=== PATIENT | male | born 1950 | race Caucasian/White ===

== ENCOUNTER 2022-02-12 08:59 | Emergency (ER) | payer MEDICARE, OTHER, SELFPAY ==
[2022-02-12] VITALS (7 sets, daily range): BP systolic 132–165; BP diastolic 68–79; PULSE 61–89; RESP 18–20; TEMP 36.7; O2SAT 94–99; BMI 24.3
--- NOTE | 2022-02-12 09:22 | EDS_ITS ---
HPI History of Present Illness Chief Complaint: Shortness of Breath Informant: patient Narrative Narrative: Patient presents with dyspnea and some mild lightheadedness. 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 He took off the helmet and then turned quickly. When he did this he got mildly dizzy or lightheaded but not vertiginous. He also feels some mild dyspnea. He does not have any chest pain pressure or soreness or tightness. He has no nausea vomiting. No diaphoresis. He does not feel ill. He has not had this occur before. He did have feeling a little bit like his hand was tingling but that is better. Patient does have a history of heart disease. He had two-vessel bypass in 2007. I was able to bring up on my chart that he had normal nuclear stress test back in 2017. He was just started on losartan recently for blood pressure. [facility] Medical History Eczema Myocardial infarct Home Medications albuterol 90 mcg/actuation aerosol inhaler 180 mcg inhalation Q4H PRN PRN Shortness Of Breath Or Wheezing 02/12/22 [History Last Taken Unknown] aspirin 81 mg tablet,delayed release 81 mg PO DAILY 02/12/22 [History Last Taken 02/12/22] atorvastatin 80 mg tablet 80 mg PO DAILY 02/12/22 [History Last Taken Unknown] bupropion HCl 150 mg tablet,12 hr sustained-release 150 mg PO BID 02/12/22 [History Last Taken Unknown] dupilumab 200 mg/1.14 mL subcutaneous pen injector (Dupixent) 300 mg subcut 02/12/22 [History Last Taken 02/02/22] fluticasone propionate 50 mcg/actuation nasal spray,suspension 2 spray intranasal DAILY 02/12/22 [History Last Taken Unknown] losartan 25 mg tablet 25 mg PO DAILY 02/12/22 [History Last Taken Unknown] magnesium oxide 400 mg PO DAILY 02/12/22 [History Last Taken Unknown] nitroglycerin 0.4 mg sublingual tablet (Nitrostat) 0.4 mg sublingual Q5M PRN CHEST PAIN 02/12/22 [History Last Taken Unknown] omeprazole 40 mg capsule,delayed release 40 mg PO DAILY 02/12/22 [History Last Taken Unknown] tamsulosin 0.4 mg capsule 0.4 mg PO DAILY 02/12/22 [History Last Taken Unknown] Allergy/AdvReac Type Severity Reaction Status Date / Time No Known Allergies Allergy Verified 02/12/22 09:10 Surgical History Hx of CABG Social History Smoking Status: Former smoker ROS ROS ED Constitutional Constitutional ED: Denies chills or fever(s) Eyes Eyes: Denies change in vision or diplopia ENT ENT ED: Denies rhinorrhea Cardiovascular Cardiovascular: Denies chest pain, palpitations or racing heartbeat Respiratory/Chest Respiratory/Chest: Reports dyspnea; Denies cough, dyspnea on exertion or sputum Gastrointestinal Gastrointestinal: Denies abdominal pain, nausea or vomiting Musculoskeletal Musculoskeletal: Denies arthralgias, back pain, myalgias or neck pain Integumentary Denies rash Neurologic Neurologic: Denies headache(s) Endocrine Endocrinology: Denies polydipsia or polyuria Hematologic/Lymphatic Hematologic/Lymphatic: Denies easy bleeding or easy bruising Allergic/Immunologic Allergic/Immunologic ED: Denies urticaria EXAM Physical Exam Const Vital Signs: 02/12/22 09:01 02/12/22 09:10 02/12/22 09:49 Temperature 98.0 F Temperature Source Oral Pulse Rate 87 81 Respiratory Rate 19 H Respiratory Effort Normal Non-Labored Respiratory Depth Normal Respiratory Pattern Normal Blood Pressure 165/79 H 158/77 H Blood Pressure Mean 107 Pulse Ox 97 Oxygen Delivery Method Room Air Room Air 02/12/22 09:54 02/12/22 11:00 02/12/22 13:00 Temperature Temperature Source Pulse Rate 89 82 61 Respiratory Rate 19 H 19 H 20 H Respiratory Effort Respiratory Depth Respiratory Pattern Blood Pressure 133/71 H 151/68 H 132/68 H Blood Pressure Mean 91 95 89 Pulse Ox 94 97 Oxygen Delivery Method Room Air Room Air Positive well nourished and well developed General Appearance ED: well developed and NAD HEENT Reports moist mucous membranes Eyes General Eye ED: Negative for scleral icterus Neck no JVD Resp normal respiratory effort Auscultation: Negative for rales, rhonchi or wheezes Cardio regular rate and regular rhythm GI non-tender, non-distended and no masses Palpation: soft Back/Spine no CVA tenderness Extremity normal to inspection General Extremety ED: Negative for edema or tenderness General Extremity: Negative for edema Neuro Sensorium / Orientation: alert Psych mental status grossly normal Skin no wounds Skin Narrative: No pallor. No diaphoresis. MDM MDM MDM Narrative Medical decision making narrative: Patient does not have chest pain. But he is a high risk patient with known heart disease. He has onset of dyspnea some mild lightheadedness and some aching in his left wrist hand area. This is a little concerning for heart disease. He has no neurologic finding. He does have a new left bundle branch block with changes. My last EKG is from 2001. I was able to bring up an EKG from 2017 off of my chart. That was not a left bundle branch. I sent the email and discussed the case with Dr. Li. At this point we will work him up but not go to [facility] immediately. He does recommend admission due to the symptoms and EKG changes and his history. Talk to the hospitalist. He talked to the patient. Patient really does not want to stay around for the weekend. He found out they would not be able to do a heart catheterization this weekend. He would like to go home. He was convinced to stay to repeat a troponin. We had a little trouble because the machine then went down. But we able to get a repeat troponin. It is unchanged. Patient feels resolved and good at this time. He will follow-up. 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 He can also contact his primary physician, Dr. Conway, for an appointment. If he has any symptoms in the meantime or concerns he should return Lab Data Attestation: I reviewed the patient's lab results. Labs: Laboratory Results - last 24 hr 02/12/22 02/12/22 02/12/22 09:20 09:20 11:42 WBC 6.1 RBC 4.24 L Hgb 12.7 L Hct 37.6 L MCV 88.7 MCH 30.0 MCHC 33.8 RDW Std Deviation 39.4 RDW Coeff of Dread 12.3 Plt Count 123 L MPV 9.9 Immature Gran % (Auto) 0.300 Neut % (Auto) 68.7 Lymph % (Auto) 17.9 L [place] % (Auto) 8.0 Eos % (Auto) 4.4 Baso % (Auto) 0.7 Absolute Neuts (auto) 4.2 Absolute Lymphs (auto) 1.10 Nucleated RBC % 0 Sodium 141 Potassium 4.2 Chloride 106 Carbon Dioxide 28.0 Anion Gap 7 BUN 17 Creatinine 1.33 H Estim Creat Clear Calc 51.68 Est GFR (MDRD) Af Amer 68 Est GFR (MDRD) Non-Af 57 L BUN/Creatinine Ratio 12.8 Glucose 107 H Calcium 9.2 Magnesium 1.6 Troponin I High Sens 13 13 Radiography Diagnostic Testing: Clinical Impression(s) from Imaging Studies Chest X-Ray 02/12/22 09:39 IMPRESSION: Normal x-ray examination of the chest. Electronically Signed: Chip Maldonado MD at 10:50 EDT , Discharge Plan Triage Chief Complaint: Shortness of Breath ED Provider: Matias Crane Dx/Rx/DC Orders Clinical Impression: Dyspnea, Bundle branch block, left Instructions: ED Dyspnea Prescriptions: No Action bupropion HCl 150 mg Tablet Sustained-Release 12 Hr 150 mg PO BID atorvastatin 80 mg tablet 80 mg PO DAILY omeprazole 40 mg capsule,delayed release(DR/EC) 40 mg PO DAILY aspirin [Aspir-81] 81 mg Tablet,Delayed Release (Dr/Ec) 81 mg PO DAILY tamsulosin 0.4 mg capsule 0.4 mg PO DAILY losartan 25 mg tablet 25 mg PO DAILY Label Comments: TAKE 1 TABLET BY MOUTH DAILY nitroglycerin [Nitrostat] 0.4 mg Tablet, Sublingual 0.4 mg SUBLINGUAL Q5M PRN (Reason: CHEST PAIN) Rx Instructions: do not exceed 3 doses per episode albuterol 90 mcg/actuation Aerosol 180 mcg INHALATION Q4H PRN PRN (Reason: Shortness Of Breath Or Wheezing) fluticasone propionate [Flonase] 50 mcg/actuation [place],Suspension 2 spray INTRANASAL DAILY Rx Instructions: administer into each nostril magnesium oxide 400 mg magnesium Capsule 400 mg PO DAILY Dupixent Pen 200 mg/1.14 mL pen injector 300 mg SUBCUT Rx Instructions: EVERY 2 WEEKS Primary Care Provider: Lindy Conway Referrals: Ivan Li MD [Med Staff - Active Staff] - As soon as possible NOT,DEFINED [Non-Staff] - Disposition Disposition: Home, Self Care
--- NOTE | 2022-02-12 09:22 | EKG12_ITS ---
Test Reason : SOB Blood Pressure : / mmHG Vent. Rate : 084 BPM Atrial Rate : 084 BPM P-R Int : 178 ms QRS Dur : 140 ms QT Int : 394 ms P-R-T Axes : 083 108 037 degrees QTc Int : 465 ms Normal sinus rhythm Rightward axis Left ventricular hypertrophy with QRS widening and repolarization abnormality ( Andrzej product ) Cannot rule out Septal infarct , age undetermined Abnormal ECG Confirmed by MATTIE ZAMAN, MARY ([id number]), web content editor HANY PACKER ([id number]) on 02/14/2022 10:04:43 AM Referred By: ALONA Confirmed By:ELODIA PHELPS MD
--- NOTE | 2022-02-12 09:39 | RAD_ITS ---
STUDY: X-RAY CHEST REASON FOR EXAM: Male, 71 years old. Chest pain TECHNIQUE: AP portable view of the chest. COMPARISON: None. FINDINGS: There are monitoring devices. The lungs are clear and expanded. There is no demonstrated pleural abnormality. Sternal cerclage wires are present from a prior sternotomy. Normal mediastinum and renetta. Normal visualized pulmonary arteries. Normal visualized aortic arch and descending thoracic aorta. Normal visualized thoracic spine. Normal visualized ribs, clavicles, and shoulders. There is no demonstrated abnormality of the visualized soft tissue structures of the upper abdomen. RAD/Chest 1 View (Portable) IMPRESSION: Normal x-ray examination of the chest. Electronically Signed: Chip Maldonado MD at 10:50 EDT ,
[2022-02-12 09:43] LABS: Absolute Neutrophil Count 4.2 X10^3/uL (2.0-7.7); Basophil# 0.04 X10^3/uL; Basophil% 0.7 % (0-1); Eosinophil# 0.27 X10^3/uL; Eosinophils% 4.4 % (0-5); Hematocrit 37.6 % (40-54); Hemoglobin 12.7 g/dL (13.0-16.5); Lymphocyte % 17.9 % (19-41); Mean Corp Hgb Conc 33.8 g/dL (32-36); Mean Corpuscular Volume 88.7 fL (80-94); Mean Platelet Vol. 9.9 fl (6.2-12.0); Monocyte# 0.49 X10^3/uL; NRBC Flagged by Analyzer 0 % (0-5); Neutrophil # 4.21 X10^3/uL (2.7-7.7); Neutrophil % 68.7 % (47-70); Platelet Count 123 K/mm3 (150-450); RBC Distribution Width CV 12.3 % (11.6-14.6); RBC Distribution Width SD 39.4 fl (35.1-43.9); Red Blood Count 4.24 M/mm3 (4.6-6.2); White Blood Count 6.1 K/mm3 (4.4-11.0)
[2022-02-12] MEDS: Nitroglycerin SL (ED/IMG/CATH) 0.4 MG TABLET SL (09:49)
--- NOTE | 2022-02-12 09:54 | ED.RN ---
NITRO X1 GIVEN SL. PT DENIES CHANGE IN SYMPTOMS. WILL CONT TO MONITOR.
[2022-02-12 10:01] LABS: Anion Gap 7 (5-15); BUN 17 mg/dL (7-18); BUN/Creat Ratio 12.8 RATIO (10-20); Calcium,Total 9.2 mg/dL (8.5-10.1); Chloride 106 mmol/L (98-107); Creatinine, Serum 1.33 mg/dL (0.70-1.30); EST Glomerular Filtration Rate 57 mL/min (>60); Est Glom Filt Rate - Afr Amer 68 mL/min (>60); Estimated Creatinine Clearance 51.68 ml/min; Glucose 107 mg/dL (74-106); Magnesium 1.6 mg/dL (1.6-2.6); Potassium 4.2 mmol/L (3.5-5.1); Sodium Level 141 mmol/L (136-145); Troponin-I HS (w/2H Reflex) 13 pg/mL (3.0-78.0)
[2022-02-12 11:34] LABS: Reflex Troponin-HS? (from REC) Y
[2022-02-12 13:23] LABS: Troponin-I HS 13 pg/mL (3.0-78.0)
== END 2022-02-12 13:48 | disposition home or self-care (01) ==
PROVIDERS: Emergency Provider Emergency Medicine; PCP Physician Assistant; Visit Provider Emergency Medicine
DX: I44.7 Left bundle-branch block, unspecified (principal); R06.02 Shortness of breath; M79.642 Pain in left hand; Z79.82 Long term (current) use of aspirin; Z87.891 Personal history of nicotine dependence
CPT/HCPCS: 71045; 80048; 83735; 84484; 85025; 93005; 99285; A4216

== ENCOUNTER 2024-05-07 12:59 | Emergency (ER) | payer MEDICARE, OTHER, SELFPAY ==
[2024-05-07 13:00] VITALS: BP 148/69; PULSE 81; RESP 18; TEMP 36.3; O2SAT 99; BMI 25.5
--- NOTE | 2024-05-07 13:40 | RAD_ITS ---
EXAM: XR LEFT FINGERS, 2 OR MORE VIEWS CLINICAL INDICATION: injury TECHNIQUE: Frontal, lateral and oblique views of the fingers of the left hand. COMPARISON: No relevant prior studies available. FINDINGS: BONES/JOINTS: Unremarkable. No acute fracture. No subluxation. Normal alignment. Preservation of the joint space. No sclerotic or destructive changes observed. SOFT TISSUES: Unremarkable. No soft tissue swelling or gas. No radiopaque foreign body. RAD/Finger(s) Min 2 Views IMPRESSION: Negative x-rays of the visualized left fingers. Electronically Signed: Luis Grajeda MD at 14:34 EST ,
[2024-05-07] MEDS: Lidocaine 1% (20 ml mdv) 20 ML Vial INFILT (14:54)
[2024-05-07 14:56] VITALS: RESP 19; O2SAT 98
--- NOTE | 2024-05-07 14:58 | EX.ED.GENINJ ---
HPI History of Present Illness Chief Complaint: Laceration Detail of Chief Complaint: Laceration volar surface left long finger DIP crease Informant: patient Onset/Context/Timing Onset: Today (Occurred at 11 AM) Mechanism/Context: Incised Quality of Pain: - (Not applicable) Location: Volar surface left long finger DIP crease Current Severity: Gone Maximum Severity: Mild Worsened by: Palpation Relieved by: Not applicable Associated Symptoms Associated Symptoms: Negative for Parasthesias, Weakness, Loss of function, Inability to ambulate or Loss of consciousness Narrative Narrative: Patient is a 73-year-old [id number] male. He presents with laceration to the volar surface of his left long finger DIP crease. He denies paresthesia, anesthesia or motor weakness. He states he has full active range of motion. He denies prior injury. Prior similar symptoms: No Recent Illness/Hospitalization: No [facility] Medical History Eczema Myocardial infarct Home Medications ?Medication ?Instructions ?Recorded ?Last Taken ?Type albuterol 90 mcg/actuation aerosol 180 mcg inhalation Q4H PRN PRN 02/12/22 Unknown History inhaler Shortness Of Breath Or Wheezing aspirin 81 mg tablet,delayed 81 mg PO DAILY 02/12/22 02/12/22 History release atorvastatin 80 mg tablet 80 mg PO DAILY 02/12/22 Unknown History bupropion HCl 150 mg tablet,12 hr 150 mg PO BID 02/12/22 Unknown History sustained-release dupilumab 200 mg/1.14 mL 300 mg subcut 02/12/22 02/02/22 History subcutaneous pen injector (Dupixent) fluticasone propionate 50 2 spray intranasal DAILY 02/12/22 Unknown History mcg/actuation nasal spray,suspension losartan 25 mg tablet 25 mg PO DAILY 02/12/22 Unknown History magnesium oxide 400 mg PO DAILY 02/12/22 Unknown History nitroglycerin 0.4 mg sublingual 0.4 mg sublingual Q5M PRN CHEST 02/12/22 Unknown History tablet (Nitrostat) PAIN omeprazole 40 mg capsule,delayed 40 mg PO DAILY 02/12/22 Unknown History release tamsulosin 0.4 mg capsule 0.4 mg PO DAILY 02/12/22 Unknown History cephalexin 500 mg capsule 500 mg PO Q6 #12 CAPSULES 05/07/24 Unknown Rx Allergy/AdvReac Type Severity Reaction Status Date / Time No Known Allergies Allergy Verified 05/07/24 13:00 Surgical History Hx of CABG Social History Smoking Status: Former smoker ROS ROS ED Musculoskeletal Musculoskeletal: Reports other Details: Laceration left long finger ; Denies arthralgias, back pain, myalgias or neck pain Integumentary Reports other Details: Linear laceration crease of the DIP joint Hematologic/Lymphatic Hematologic/Lymphatic: Denies easy bleeding or easy bruising EXAM Physical Exam Const Vital Signs: 05/07/24 13:00 05/07/24 14:56 Temperature 97.4 F L Temperature Source Temporal Pulse Rate 81 Respiratory Rate 18 19 H Blood Pressure 148/69 H Blood Pressure Mean 95 Pulse Ox 99 98 Oxygen Delivery Method Room Air Positive well nourished Constitutional Narrative: Blood pressure is slightly elevated. He does have a history of hypertension on losartan. General Appearance ED: NAD HEENT atraumatic Eyes PERRL and EOMs intact bilaterally Resp normal respiratory effort Cardio regular rhythm Rate: regular rate Extremity full ROM; Negative for normal to inspection Extremity Narrative: To point discrimination is normal. Cap refill is normal. The flexor digitorum superficialis and flexor digitorum profundus are functionally intact. Expression of the wound reveals that the flexor tendon may be lacerated. He complained of pain when I looked. Will digitally block him and explore after he is properly anesthetized. Neuro oriented x3, CN's II-XII intact bilaterally, moves all extremities, no focal motor deficits and no sensory deficits noted [place] Coma Scale: document GCS findings Spontaneous Obeys Commands Oriented 15 Sensorium / Orientation: alert Psych mental status grossly normal and thought process normal Skin Skin Narrative: Laceration left long finger PROC Procedures Other Procedures Procedure(s): Patient was prepped draped sterile manner. The digit was anesthetized by digital nerve block using 1% lidocaine. Total of 3 cc was infused. After patient's finger was numb finger turnicot was applied. Bleeding was controlled. Able to visualize that there is a laceration of the flexor digitorum profundus. The wound was irrigated with 125 cc of normal saline. 2 stitches were placed to close the skin. He received dose of cephalexin in department discharged with prescription for cephalexin and referral to Dr. Theron Quiroz. He was placed in an aluminum splint 30 to 40 degrees flexion at the PIP and DIP joint. MDM MDM MDM Narrative Medical decision making narrative: Since laceration is a over the DIP joint. X-ray was obtained to evaluate for evidence of traumatic arthrotomy. Also to rule out foreign body or injury to bone. Please see procedure note. Radiography Chest X-Ray - ED: Read by ED Physician (Three-view x-ray of the left long finger reveals no abnormality i.e. foreign body, subcutaneous air or bony abnormality per my independent review and interpretation.) Diagnostic Testing: Clinical Impression(s) from Imaging Studies Finger X-Ray 05/07/24 13:40 IMPRESSION: Negative x-rays of the visualized left fingers. Electronically Signed: Luis Grajeda MD at 14:34 EST Reading Location ID and State: [address] [place] [address] Tel , Service support , Discharge Plan Triage Chief Complaint: Laceration ED Provider: Reinaldo Alan Dx/Rx/DC Orders Clinical Impression: Laceration of left middle finger with tendon involvement, Elevated blood pressure reading with diagnosis of hypertension Instructions: ED Laceration, Hand: All Closures Prescriptions: New cephalexin 500 mg capsule 500 mg PO Q6 Qty: 12 0RF No Action bupropion HCl 150 mg Tablet Sustained-Release 12 Hr 150 mg PO BID atorvastatin 80 mg tablet 80 mg PO DAILY omeprazole 40 mg capsule,delayed release(DR/EC) 40 mg PO DAILY aspirin [Aspir-81] 81 mg Tablet,Delayed Release (Dr/Ec) 81 mg PO DAILY tamsulosin 0.4 mg capsule 0.4 mg PO DAILY losartan 25 mg tablet 25 mg PO DAILY Patient Comments: TAKE 1 TABLET BY MOUTH DAILY nitroglycerin [Nitrostat] 0.4 mg Tablet, Sublingual 0.4 mg SUBLINGUAL Q5M PRN (Reason: CHEST PAIN) Rx Instructions: do not exceed 3 doses per episode albuterol 90 mcg/actuation Aerosol 180 mcg INHALATION Q4H PRN PRN (Reason: Shortness Of Breath Or Wheezing) fluticasone propionate [Flonase] 50 mcg/actuation [place],Suspension 2 spray INTRANASAL DAILY Rx Instructions: administer into each nostril magnesium oxide 400 mg magnesium Capsule 400 mg PO DAILY Dupixent Pen 200 mg/1.14 mL pen injector 300 mg SUBCUT Rx Instructions: EVERY 2 WEEKS Referrals: Theron Quiroz MD [Med Staff - Active Staff] - As soon as possible Activity Restrictions/Additional Instructions: 1. Keep finger clean and dry 2. Keep splint on. May remove to change tape every 2 to 3 days 3. Take antibiotics until gone Print Language: Libyan Disposition Disposition: Home, Self Care
[2024-05-07] MEDS: Cephalexin 500 MG Capsule PO (15:28)
== END 2024-05-07 15:28 | disposition home or self-care (01) ==
LOC: ED 15:26
PROVIDERS: Emergency Provider Emergency Medicine; PCP Clinical Nurse Specialist Adult Health; Visit Provider Emergency Medicine
DX: S66.123A Laceration of flexor muscle, fascia and tendon of left middle finger at wrist and hand level, initial encounter (principal); I10 Essential (primary) hypertension; Z87.891 Personal history of nicotine dependence; Z79.899 Other long term (current) drug therapy; W26.8XXA Contact with other sharp object(s), not elsewhere classified, initial encounter
CPT/HCPCS: 12001; 73140; 99282

== ENCOUNTER 2024-05-13 09:08 | Day surgery (SDC) | payer MEDICARE, OTHER, SELFPAY ==
[2024-05-13] VITALS (9 sets, daily range): BP systolic 117–144; BP diastolic 61–85; PULSE 77–88; RESP 14–16; TEMP 36.3–36.7; O2SAT 96–100; BMI 23.4
--- NOTE | 2024-05-13 09:27 | PAT.ANE_ITS ---
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 When Was Last Pacemaker Check QUESTION #4 FULL TEXT: You/Your Family Experience fever (hyperthermia) with Anesthesia Last Oral Intake Last Oral intake: Last Oral Intake NPO since Meds taken in AM with sips of water? Meds patient instructed to take am of surgery PONV PONV - director of recreation therapy: PONV - director of recreation therapy Female No 05/10/24 15:00 HX of Motion Sickness No 05/10/24 15:00 HX of N/V After Surgery No 05/10/24 15:00 Non-Smoker Yes 05/10/24 15:00 Duration of Surgery greater Yes 05/10/24 15:00 than 60 minutes Number of Risk Factors 2 05/10/24 15:00 PONV Score Moderate Risk 05/10/24 15:00 Height & Weight Height & Weight: Anesthesia: Height & Weight Height 5 ft 9 in 05/10/24 13:17 Respiratory Assessment Respiratory Assessment - director of recreation therapy: Respiratory Tract Infection Hx - director of recreation therapy Hx Respiratory Tract Infection No 05/10/24 15:00 STOP Sleep Apnea STOP Sleep Apnea - director of recreation therapy: STOP Sleep Apnea - director of recreation therapy Hx Hypertension Yes: CONTROLLED ON MED 05/10/24 15:00 Hx Sleep Apnea No 05/10/24 15:00 CPAP BIPAP Do you snore loudly (louder No 05/10/24 15:00 than talking or can be heard Do you often feel tired/ No 05/10/24 15:00 fatigued/ sleepy during daytime? Has anyone observed you stop No 05/10/24 15:00 breathing during sleep? STOP Results Negative 05/10/24 15:00 QUESTION #5 FULL TEXT : Do you snore loudly (louder than talking or can be heard through closed doors)? 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 Specify any problems Hx of Preganancy in last 3 N/A 05/10/24 15:00 Months Nurse Filling Out Transfusion VCHRISTIN 05/10/24 15:00 & Questions: Date: 05/10/24 05/10/24 15:00 Time: 15:01 05/10/24 15:00 Patient unable to answer at this time (ie. confused, unrespo /Reproduction History /Reproductive History - director of recreation therapy: /Reproductive Hx- director of recreation therapy Hx Now Gestational Age (in weeks): EDC: Hx Hx Para Hx Section SAB PFSH Medical History Wears glasses Cancer Arthritis Excessive bleeding Back pain Gastric reflux Non-smoker Asthma Hypertension History of echocardiogram History of stress test Cardiology follow-up encounter Eczema Myocardial infarct Home Medications ?Medication ?Instructions ?Recorded ?Last Taken ?Type aspirin 81 mg tablet,delayed 81 mg PO DAILY 02/12/22 02/12/22 History release atorvastatin 80 mg tablet 80 mg PO DAILY 02/12/22 Unknown History bupropion HCl 150 mg tablet,12 hr 150 mg PO DAILY 02/12/22 Unknown History sustained-release dupilumab 200 mg/1.14 mL 300 mg subcut .Q2 WEEKLY ECZEMA 02/12/22 02/02/22 History subcutaneous pen injector (Dupixent) fluticasone propionate 50 2 spray intranasal DAILY PRN 02/12/22 Unknown History mcg/actuation nasal ALLERGIES spray,suspension magnesium oxide 400 mg PO DAILY 02/12/22 Unknown History nitroglycerin 0.4 mg sublingual 0.4 mg sublingual Q5M PRN CHEST 02/12/22 Unknown History tablet (Nitrostat) PAIN omeprazole 40 mg capsule,delayed 40 mg PO .QOD 02/12/22 Unknown History release tamsulosin 0.4 mg capsule 0.4 mg PO DAILY 02/12/22 Unknown History cephalexin 500 mg capsule 500 mg PO Q6 #12 CAPSULES 05/07/24 Unknown Rx PREVAGIN 1 tab PO DAILY 05/10/24 Unknown History albuterol sulfate 90 mcg/actuation 1 puff inhalation Q4H PRN PRN 05/10/24 Unknown History aerosol inhaler wheezing cholecalciferol (vitamin D3) 25 25 mcg PO DAILY 05/10/24 Unknown History mcg (1,000 unit) capsule (Vitamin D3) losartan 50 mg tablet 50 mg PO DAILY 05/10/24 Unknown History multivitamin (Daily Multi-Vitamin 1 tab PO DAILY 05/10/24 Unknown History tablet) naproxen sodium 220 mg tablet 220 mg PO BID PRN pain 05/10/24 Unknown History (Aleve) zinc gluconate 50 mg tablet 50 mg PO DAILY 05/10/24 Unknown History Allergy/AdvReac Type Severity Reaction Status Date / Time No Known Allergies Allergy Verified 05/10/24 14:39 Surgical History Hx of knee surgery Hx of CABG Social History Smoking Status: Former smoker Audit: Pertinent Findings Pertinent Findings EKG Perinent findings: 02/17/2022 normal sinus rhythm 84 bpm LVH with repole abnormality cannot rule out septal infarct age undetermined Consult pertinent findings: Cardiology 01/19/2024 coronary artery disease status post CABG doing well without symptoms continue current medical therapy normal stress 07/11/2022 with EF 59% Pulmonary function results/spirometer pertinent findings: Chest x-ray 02/17/2022 normal x-ray examination of chest Recommendation Anesthesia Recommendation Anesthesia recommendation: OPTIMIZED for anesthesia
--- NOTE | 2024-05-13 10:48 | PCM.PRE.AN2 ---
ASA Classification* ASA Classification ASA Classification: 3 Assessment & Plan Anesthesia* Anesthesia Assessment Anesthesia Assessment: Discussed sedation and/or anesthesia options, risks, benefits, and alternatives with patient/parents/legal guardian/POA. Questions invited. The patient/parents/legal guardian/POA seems to understand and agrees to proceed with anesthesia plan. Reviewed the physical assessment, medical history, allergy history and patient home medications list prior to surgery/procedure/anesthetic and documented any changes. Performed airway and anesthesia risk assessments. Anesthesia Type Anesthesia Type: MAC Anesthesia Focused Assessment* Temperature: 97.4 F Pulse Rate: 84 Blood Pressure: 144/85 Respiratory Rate: 16 Pulse Ox: 100 Airway Assessment Mouth opens: >3 cm Mallampati Score: II Focused Labs Anesthesia Preop lab: CBC WBC 6.1 K/mm3 (4.4-11.0) 02/12/22 09:20 RBC 4.24 M/mm3 (4.6-6.2) L 02/12/22 09:20 Hgb 12.7 g/dL (13.0-16.5) L 02/12/22 09:20 Hct 37.6 % (40-54) L 02/12/22 09:20 Plt Count 123 K/mm3 (150-450) L 02/12/22 09:20 CHEMISTRY Potassium 4.2 mmol/L (3.5-5.1) 02/12/22 09:20 Sodium 141 mmol/L (136-145) 02/12/22 09:20 Magnesium 1.6 mg/dL (1.6-2.6) 02/12/22 09:20 BUN 17 mg/dL (7-18) 02/12/22 09:20 Creatinine 1.33 mg/dL (0.70-1.30) H 02/12/22 09:20 Glucose 107 mg/dL (74-106) H 02/12/22 09:20 COAG Pre-Assessment Diagnosis/Proposed Procedure Planned Operative Procedure(s): REPAIR LEFT LONG FINGER TENDON REPAIR Anesthesia History Anesthesia History - claim administrator: Anesthesia History - claim administrator Hx Hospitalization No 05/10/24 15:00 Any Problems With Anesthesia No 05/10/24 15:00 Cholinesterase deficiency No 05/10/24 15:00 You/Your Family Experience No 05/10/24 15:00 fever (hyperthermia) with Relationship Recent Exposure to Contagious No 05/13/24 10:23 Disease Does patient have nerve No 05/10/24 15:00 stimulator Patient instructed to have device shut off --Does patient have Pacemaker No 05/13/24 10:23 or ICD? When Was Last Pacemaker Check QUESTION #4 FULL TEXT: You/Your Family Experience fever (hyperthermia) with Anesthesia Last Oral Intake Last Oral intake: Last Oral Intake NPO since 00:00 05/13/24 10:23 Meds taken in AM with sips of water? Meds patient instructed to take am of surgery PONV PONV - claim administrator: PONV - claim administrator Female No 05/10/24 15:00 HX of Motion Sickness No 05/10/24 15:00 HX of N/V After Surgery No 05/10/24 15:00 Non-Smoker Yes 05/10/24 15:00 Duration of Surgery greater Yes 05/10/24 15:00 than 60 minutes Number of Risk Factors 2 05/10/24 15:00 PONV Score Moderate Risk 05/10/24 15:00 Height & Weight Height & Weight: Anesthesia: Height & Weight Height 5 ft 9 in 05/13/24 10:23 Weight: 72.121 kg 05/13/24 10:23 Body Mass Index (BMI) 23.4 05/13/24 10:23 Respiratory Assessment Respiratory Assessment - claim administrator: Respiratory Tract Infection Hx - claim administrator Hx Respiratory Tract Infection No 05/10/24 15:00 STOP Sleep Apnea STOP Sleep Apnea - claim administrator: STOP Sleep Apnea - claim administrator Hx Hypertension Yes: CONTROLLED ON MED 05/10/24 15:00 Hx Sleep Apnea No 05/10/24 15:00 CPAP BIPAP Do you snore loudly (louder No 05/10/24 15:00 than talking or can be heard Do you often feel tired/ No 05/10/24 15:00 fatigued/ sleepy during daytime? Has anyone observed you stop No 05/10/24 15:00 breathing during sleep? STOP Results Negative 05/10/24 15:00 QUESTION #5 FULL TEXT : Do you snore loudly (louder than talking or can be heard through closed doors)? 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 Specify any problems Hx of Preganancy in last 3 N/A 05/10/24 15:00 Months Nurse Filling Out Transfusion VCHRISTIN 05/10/24 15:00 & Questions: Date: 05/10/24 05/10/24 15:00 Time: 15:01 05/10/24 15:00 Patient unable to answer at this time (ie. confused, unrespo /Reproduction History /Reproductive History - claim administrator: /Reproductive Hx- claim administrator Hx Now Gestational Age (in weeks): EDC: Hx Hx Para Hx Section SAB PFSH Medical History Wears glasses Cancer Arthritis Excessive bleeding Back pain Gastric reflux Non-smoker Asthma Hypertension History of echocardiogram History of stress test Cardiology follow-up encounter Eczema Myocardial infarct Home Medications ?Medication ?Instructions ?Recorded ?Last Taken ?Type aspirin 81 mg tablet,delayed 81 mg PO DAILY 02/12/22 05/11/24 History release atorvastatin 80 mg tablet 80 mg PO DAILY 02/12/22 Unknown History bupropion HCl 150 mg tablet,12 hr 150 mg PO DAILY 02/12/22 Unknown History sustained-release dupilumab 200 mg/1.14 mL 300 mg subcut .Q2 WEEKLY ECZEMA 02/12/22 02/02/22 History subcutaneous pen injector (Dupixent) fluticasone propionate 50 2 spray intranasal DAILY PRN 02/12/22 Unknown History mcg/actuation nasal ALLERGIES spray,suspension magnesium oxide 400 mg PO DAILY 02/12/22 Unknown History nitroglycerin 0.4 mg sublingual 0.4 mg sublingual Q5M PRN CHEST 02/12/22 Unknown History tablet (Nitrostat) PAIN omeprazole 40 mg capsule,delayed 40 mg PO .QOD 02/12/22 Unknown History release tamsulosin 0.4 mg capsule 0.4 mg PO DAILY 02/12/22 Unknown History cephalexin 500 mg capsule 500 mg PO Q6 #12 CAPSULES 05/07/24 Unknown Rx PREVAGIN 1 tab PO DAILY 05/10/24 Unknown History albuterol sulfate 90 mcg/actuation 1 puff inhalation Q4H PRN PRN 05/10/24 Unknown History aerosol inhaler wheezing cholecalciferol (vitamin D3) 25 25 mcg PO DAILY 05/10/24 Unknown History mcg (1,000 unit) capsule (Vitamin D3) losartan 50 mg tablet 50 mg PO DAILY 05/10/24 Unknown History multivitamin (Daily Multi-Vitamin 1 tab PO DAILY 05/10/24 Unknown History tablet) naproxen sodium 220 mg tablet 220 mg PO BID PRN pain 05/10/24 Unknown History (Aleve) zinc gluconate 50 mg tablet 50 mg PO DAILY 05/10/24 Unknown History Allergy/AdvReac Type Severity Reaction Status Date / Time No Known Allergies Allergy Verified 05/13/24 10:21 Surgical History Hx of knee surgery Hx of CABG Social History Smoking Status: Former smoker Review of Systems (Anesthesia) ROS Narrative System reviewed and no additional complaints, except as documented.
--- NOTE | 2024-05-13 11:08 | HP.PCM.SX_ITS ---
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 He reports sharp severe pain worsened by movements and improved with rest and elevation. He immediately presented to the emergency department where his wound was examined and washed out. Per emergency department physician examination, there is a partial and possibly near total flexor digitorum profundus injury. Patient denies any numbness or any functional deficit at this point. Patient is not a smoker. Patient does not have a history of bleeding or clotting problems personally or within his family. No history of problems with anesthesia. Has never hurt this hand before. Caprini score is 4 Current Encounter (DATE OF SURGERY H&P UPDATE): I saw and examined the patient this morning in pre-operative holding. We discussed risks and benefits of today's surgery and they would like to proceed. NO CHANGE in health history since last seen and evaluated. Ready to proceed with surgery. [facility] Medical History Wears glasses Cancer Arthritis Excessive bleeding Back pain Gastric reflux Non-smoker Asthma Hypertension History of echocardiogram History of stress test Cardiology follow-up encounter Eczema Myocardial infarct Home Medications ?Medication ?Instructions ?Recorded ?Last Taken ?Type aspirin 81 mg tablet,delayed 81 mg PO DAILY 02/12/22 05/11/24 History release atorvastatin 80 mg tablet 80 mg PO DAILY 02/12/22 Unknown History bupropion HCl 150 mg tablet,12 hr 150 mg PO DAILY 02/12/22 Unknown History sustained-release dupilumab 200 mg/1.14 mL 300 mg subcut .Q2 WEEKLY ECZEMA 02/12/22 02/02/22 History subcutaneous pen injector (Dupixent) fluticasone propionate 50 2 spray intranasal DAILY PRN 02/12/22 Unknown History mcg/actuation nasal ALLERGIES spray,suspension magnesium oxide 400 mg PO DAILY 02/12/22 Unknown History nitroglycerin 0.4 mg sublingual 0.4 mg sublingual Q5M PRN CHEST 02/12/22 Unknown History tablet (Nitrostat) PAIN omeprazole 40 mg capsule,delayed 40 mg PO .QOD 02/12/22 Unknown History release tamsulosin 0.4 mg capsule 0.4 mg PO DAILY 02/12/22 Unknown History cephalexin 500 mg capsule 500 mg PO Q6 #12 CAPSULES 05/07/24 Unknown Rx PREVAGIN 1 tab PO DAILY 05/10/24 Unknown History albuterol sulfate 90 mcg/actuation 1 puff inhalation Q4H PRN PRN 05/10/24 Unknown History aerosol inhaler wheezing cholecalciferol (vitamin D3) 25 25 mcg PO DAILY 05/10/24 Unknown History mcg (1,000 unit) capsule (Vitamin D3) losartan 50 mg tablet 50 mg PO DAILY 05/10/24 Unknown History multivitamin (Daily Multi-Vitamin 1 tab PO DAILY 05/10/24 Unknown History tablet) naproxen sodium 220 mg tablet 220 mg PO BID PRN pain 05/10/24 Unknown History (Aleve) zinc gluconate 50 mg tablet 50 mg PO DAILY 05/10/24 Unknown History Allergy/AdvReac Type Severity Reaction Status Date / Time No Known Allergies Allergy Verified 05/13/24 10:21 Surgical History Hx of knee surgery Hx of CABG Social History Smoking Status: Former smoker Vital Signs Vital Signs Vital Signs: 05/13/24 10:23 05/13/24 10:49 Temperature 97.4 F L 97.4 F L Temperature Source Temporal Pulse Rate 84 84 Respiratory Rate 16 16 Blood Pressure 144/85 H 144/85 H Blood Pressure Mean 104 Blood Pressure Source Monitor Blood Pressure Position Semi-Fowlers Blood Pressure Location Right Arm Pulse Ox 100 100 Oxygen Delivery Method Room Air Weight Weight: 159 lb Body Mass Index (BMI) 23.4 Physical Exam Narrative LEFT Upper Extremity Inspection: Left long finger DIP joint volar surface with small wound, nylon sutures in place. No drainage. No signs of infection. No collateral ligament instability at the DIPJ Motor: Able to bend and extend all MP, PIP, and DIP joints. Sensory: Intact to light touch on the radial and ulnar borders. Vascular: Finger tips are warm and well perfused with <2 second capillary refill Assessment & Plan Assessment/Plan (1) Laceration of left middle finger with tendon involvement: PLAN: I talked the patient extensively about the risks of surgery, including bleeding, infection, damage to surrounding structures, hardware placement and hardware failure (suture anchors), repair failure, surgical site dehiscence and wound formation, need for wound care, need for repeat operations, failure to obtain the desired result, DVT/PE, and the risks of anesthesia including . The benefits and alternatives of this surgery were also discussed. All of their questions were answered, and they agreed to proceed with surgery. We talked specifically about how he does not have a current functional deficit. 1 option would be to observe the wound or limit activity, and do watchful waiting. Another option is exploration in the operating room to see how much of the tendon is cut (discussed how 50% or greater would be an indication for repair). He would like to have it explored and fix it as he is worried that it will rupture in the future if it is not adequately repaired as he uses his hands often while working and lifting. We discussed postoperative protocols for tendon repair. He is accepting of the plan for exploration and possible tendon repair. He understands that we may need to make incisions on his hand to find the tendon or tendon if tendon ret racts, and to just gain more surgical exposure. He also understands possibility of need for suture anchors if there is not a lot of distal purchase for sutures (zone 1 injury). Plan for exploration in the OR and possible tendon repair. INTERVAL H&P PLAN, DATE OF SURGERY: We will proceed with surgery today.
--- NOTE | 2024-05-13 11:16 | RAD_ITS ---
EXAM: FL FLUOROSCOPY < 1 HOUR CLINICAL INDICATION: FINGER EXPLORATION AND POSSIBLE TENDON REPAIR TECHNIQUE: Fluoroscopic images performed in multiple projections. Fluoroscopic guidance was provided by a physician. This report was created using sourceasy report generation technology. 8 images, 85 seconds, 0.5625 mGy. COMPARISON: None. FINDINGS AND RAD/Hand 2 Views IMPRESSION: Intraoperative fluoroscopic images. Refer to the operative note for complete details. Electronically Signed: Bobby Joy DO at 0:05 EST ,
[2024-05-13] MEDS: Cefazolin 2 GM in Syringe IV (11:27)
[2024-05-13] MEDS: Bupiv/Epi 0.25% 30 ML Vial (11:58)
[2024-05-13] MEDS: Lidocaine 1% /Epi 1:100 (20ml) 20 ML Vial (11:58)
--- NOTE | 2024-05-13 13:06 | PCM.POST.ANE ---
Anesthesia: Postop Eval I Current Vital Signs Temperature: 97.8 F Pulse Rate: 82 Blood Pressure: 117/61 Respiratory Rate: 14 Pulse Ox: 96 Oxygen Delivery Method: Room Air Assessment Airway patent: Yes Spontaneous unlabored respirations: Yes Mental status: Asleep nausea: No Vomiting: No Anesthesia Complication: No Fluid Hydration Crystalloid volume administer (ml): 50 Total IV fluid infused: 50 Progress Note Anesthesia document: Postop Eval 1 completed: Yes
--- NOTE | 2024-05-13 13:14 | PCM.OPRPT ---
Operative Report (Standard) Operative Information Date of Procedure: 05/13/24 Pre-Operative Diagnosis: 1) Left long finger flexor (RLF) digitorum profundus (FDP) zone 1 laceration (90%) Post-Operative Diagnosis: Same Surgery/Procedure Performed: Repair of left long finger FDP (flexor tendon repair, CPT 81115) hoop punch operator helper: Yes Special Events Assistant: Collette Cordova Tasks completed by assistant banquet manager: Retracting Type of Anesthesia: MAC/Supplemental (5 cc of a 50/50 mixture of 1% lidocaine and 0.25% marcaine with epinephrine ) RN Documented Start/Stop Times: Operation Date: 05/13/24 12:30 Case Time Into Pre-Op 05/13/24 10:10 Out of Pre-Op 05/13/24 11:22 Anesthesia Start 05/13/24 11:27 Into Room 05/13/24 11:27 Procedure Start 05/13/24 11:47 Procedure End 05/13/24 12:54 Anesthesia End 05/13/24 12:58 Out of Room 05/13/24 12:58 Into Recovery 05/13/24 13:00 Out of Recovery 05/13/24 13:26 Into Phase II Recovery 05/13/24 13:27 Procedure Start Time: 11:47 Procedure Stop Time: 12:54 Select all DRAINS/GRAFTS/IMPLANTS that apply: Implanted device (Suture anchors ) Implanted device details: 3-0 Fiberwire suture anchors with 1/2 native taper pointe needles, K wires Estimated Blood Loss: Minimal Specimen collected: No Description of surgery: INDICATIONS: Bridger Goldberg is a 73-year-old male who had a laceration to the left middle finger and was seen and evaluated by the emergency department. The laceration was at the level of the DIP joint there was concern for tendon injury. On my exam, he had no physical deficits but given history of deep laceration on the volar surface of his hand and concern by the ED physician of a deep cut involving the tendon, I talked the patient about taking him back to the operating room to evaluate. Patient understood the risks, benefits and alternatives, and the plan for repair if the tendon were significantly lacerated (greater than 50%). He elected to proceed. Procedure details: Patient was correctly defined in preoperative holding and marked. He was taken back to the operating room where he was administered sedation and a local block as noted above. He was prepped and draped in sterile fashion. A turnicot was applied and care was taken to remove the turnicot at the end of the case from the left long finger. 15 blade scalpel was used to remove the sutures and create Michelle incisions using the existing transverse laceration to expose the distal zone one of the FDP. Care was taken to preserve the digital nerves and arteries. The very tip of the tendon at its insertion was cut nearly 100% (approximately 90% laceration of the FDP), with only lateral slips of the tendon expansion still intact and inserting into the distal phalanx volar base. The decision was therefore made to use suture anchors to repair the tendon. The mini C arm was then brought into the room. I then placed two 1.7 x 5 mm suture anchors parallel to one another in the proximal portion of the distal phalanx and the [place] portion of the insertion of the FDP. We were satisfied with the lateral and the PA of the suture anchors (extra-articular and in a good location outside of the nailbed). An augmented Frost technique with 4 core strands was then used for suturing the tendon with the suture anchors on the radial and ulnar sides the tendon. The finger was in a neutral position at this point, and I was satisfied with the tension/cascade with the other fingers. The turnicot was removed, hemostasis was obtained with bipolar electrocautery, and the wound was irrigated and closed with horizontal 4-0 nylon horizontal mattress sutures. Xeroform, Webril, and a dorsal blocking plaster splint were applied with the fingers slightly flexed. The patient tolerated the procedure well and was awakened and taken the PACU in stable condition. Postoperative plan: Start hand therapy later this week for flexor tendon protocol with occupational therapy and therapist. Follow-up with me in 1 week for wound check. Patient will receive a removable splint from hand therapist later this week. Surgical Findings: 90% FDP laceration Zone 1 of left long finger Complications Complications: No Admit VTE Documentation VTE Mechan Device Prophylaxis: SCD's
--- NOTE | 2024-05-13 13:31 | POSTOPAN2_ITS ---
Anesthesia Postop Eval I Sum Postop Eval Completion status Anesthesia document: Postop Eval 1 completed: Yes Anesthesia Postop Eval I Summary Anesthesia Postop Eval I Summary: Anesthesia Postop Eval I: Assessment Summary Airway patent Yes 05/13/24 13:07 SLURRY CONTROL TENDER.TNES Spontaneous unlabored Yes 05/13/24 13:07 SLURRY CONTROL TENDER.TNES respirations Mental status Asleep 05/13/24 13:07 SLURRY CONTROL TENDER.TNES nausea No 05/13/24 13:07 SLURRY CONTROL TENDER.TNES Vomiting No 05/13/24 13:07 SLURRY CONTROL TENDER.TNES Anesthesia Postop Eval I: Fluid Summary Crystalloid volume administer 50 05/13/24 13:07 SLURRY CONTROL TENDER.TNES (ml) Colloids volume administered ( ml) Blood Product volume administered (ml) Total IV fluid infused 50 05/13/24 13:07 SLURRY CONTROL TENDER.TNES Anesthesia Postop Eval I: Summary Notes Anesthesia Complication No 05/13/24 13:07 SLURRY CONTROL TENDER.TNES Anesthesia Complication Comment: Post-operative progress note Anesthesia: Postop Eval II Evaluation Mental status: Awake Pain Level: 0 nausea: No Vomiting: No
--- NOTE | 2024-05-13 13:31 | PCM.POSTANE2 ---
Anesthesia Postop Eval I Sum Postop Eval Completion status Anesthesia document: Postop Eval 1 completed: Yes Anesthesia Postop Eval I Summary Anesthesia Postop Eval I Summary: Anesthesia Postop Eval I: Assessment Summary Airway patent Yes 05/13/24 13:07 INTERNAL MEDICINE NURSE.TNES Spontaneous unlabored Yes 05/13/24 13:07 INTERNAL MEDICINE NURSE.TNES respirations Mental status Asleep 05/13/24 13:07 INTERNAL MEDICINE NURSE.TNES nausea No 05/13/24 13:07 INTERNAL MEDICINE NURSE.TNES Vomiting No 05/13/24 13:07 INTERNAL MEDICINE NURSE.TNES Anesthesia Postop Eval I: Fluid Summary Crystalloid volume administer 50 05/13/24 13:07 INTERNAL MEDICINE NURSE.TNES (ml) Colloids volume administered ( ml) Blood Product volume administered (ml) Total IV fluid infused 50 05/13/24 13:07 INTERNAL MEDICINE NURSE.TNES Anesthesia Postop Eval I: Summary Notes Anesthesia Complication No 05/13/24 13:07 INTERNAL MEDICINE NURSE.TNES Anesthesia Complication Comment: Post-operative progress note Anesthesia: Postop Eval II Evaluation Mental status: Awake Pain Level: 0 nausea: No Vomiting: No
== END 2024-05-13 14:54 | disposition home or self-care (01) ==
LOC: SDC 09:08 → AC 09:09
PROVIDERS: Referring Provider Surgery Plastic and Reconstructive Surgery; Visit Provider Surgery Plastic and Reconstructive Surgery
PROC: (CPT 26370; principal; 2024-05-13 12:15)
DX: S66.123A Laceration of flexor muscle, fascia and tendon of left middle finger at wrist and hand level, initial encounter (principal); W26.8XXA Contact with other sharp object(s), not elsewhere classified, initial encounter; Y92.69 Other specified industrial and construction area as the place of occurrence of the external cause; I10 Essential (primary) hypertension; J45.909 Unspecified asthma, uncomplicated; K21.9 Gastro-esophageal reflux disease without esophagitis; I25.2 Old myocardial infarction; Z79.82 Long term (current) use of aspirin; Z79.899 Other long term (current) drug therapy; Z87.891 Personal history of nicotine dependence
CPT/HCPCS: 26370; 01810; 73120; 76000; C1713; A4216; J2405

== ENCOUNTER 2024-08-26 08:30 | Outpatient (RCR) | payer MEDICARE, OTHER, SELFPAY ==
--- NOTE | 2024-05-17 13:20 | HP.OTEVAL_ITS ---
Patient's Visit Information Visit Information Visit Information: MARZENA MCMANUS is a 73 year old M, referred to Occupational Therapy by Dr. Theron Quiroz MD, with a diagnosis of left FDP laceration. Date of Evaluation: 05/17/24 Occupational Therapist: Kristie Harrison, EDDA/Rocky, CHT Subjective Subjective: This 73 year old male was seen for OT eval with dx of left long finger flexor tendon repair. DOI was on 05/07/24 - finger slid down some metal s heeting. pt underwent left LF tendon repair on 05/13/24. pt arrives today with dorsal blocking soft surgical splint on. pt arrives with friend and demo he can move in his hand in his splint. pt is limited with all ADLs at this time- Pain left hand: Current Pain Intensity: 0 ROM ROM Comments: pt demo with slight 10* flexion of left MF DIP all other PROM of left LF demo WFL incision dry Strength Strength Comments: will test later date Sensation Sensation Comments: denies Quick DASH-Disab of Arm,Shoulder& Hand Quick DASH Score: 68.1800 Goals Goal:100% adherence to protocol: Yes Comment: FDP zone 1 tendon repair guidelines Goal:Daily scar massage when approriate: Yes Goal:ROM equal to unaffected hand: Yes Goal:Hardening Machine Operator/Pinch strength at least 75% of unaffected hand: Yes Comment: will not initiate until week 6-8 s/p Goal:No pain with affected hand use: Yes Goal:Full use of affected hand in daily activities including work: Yes Other Goal: orthosis use: pt will demo understanding of using custom orthosis at all times by end of 1st session. Rehabilitation General Assessment: PT arrives 4 days s/p from zone 1 left FDP tendon repair- with use of suture anchors to repair the tendon. use of 4 core strands with then used for suturing the tendon with the suture anchors to the radial and ulnar sides of the tendon - Pt demo need for skilled OT services 1-2x week for 12 weeks to return pt to [facility]. pt arrives with plaster cast broken in two places- and pt wiggling around his fingers- Therapist ed. pt on his dx. and repair and advised him to hold off on trying to move finger at this time. pt demo understanding- as zone 1 with 90 laceration and 4 strand core repair with 3-0 fiberwire suture anchors therapists went with hand based dorsal blocking orthosis- pt ed. to wear at all times pt demo understanding- therapist ed. pt on PROM of MP-PIP-& DIP and gave handouts. therapist also ed. pt on watching for signs and symptoms of infection- pt demo understanding and agree to POC. Rehabilitation Potential: Good Anticipated Interventions Anticipated Interventions: Early Active Motion, A/AAROM/PROM, Scar Care, Triggerpoint Release, Modalities, Orthoses, Joint Protection/Energy Conservation, Ergonomic Education, Fine Motor Coord/Sam, Education re assistive Equipment, Education re Diagnosis and Home Program Visit Plan Frequency: 1-2x /Week Duration: 3 Months TEXT: Thank you for the opportunity to evaluate your patient. For Medicare and Medicare HMO plans, please review the plan of care and approve it. It will need to be FAXED BACK to us at [phone] for Medicare purposes. Please let me know if there are questions or concerns regarding this plan of care. Physician Signature: Date:
--- NOTE | 2024-08-13 09:02 | HP.OTREVAL ---
Re-Evaluation Intro: Dr. Theron Quiroz MD, It has been my pleasure to treat MARZENA MCMANUS over the last 10 visits for left FDP laceration. Please see the progress note below for an update on the occupational therapy plan of care! Subjective Subjective: arrives doing well pt is now 13 weeks and 1 day from surgery. 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 demonstrating improved ROM as well as strength with no pain reported. Plan Plan Frequency: 1-2x /Week Duration: 3 Months Plan: light use light front office agent strength precautions of aggressive fisting or lifting with hook fist Goals Goals Patient Goals: Use Hand/Wrist/Arm Normally Again Goal Progress: Progressing Goal:100% adherence to protocol: Yes Goal:Daily scar massage when approriate: Yes Goal Progress: Progressing Goal:ROM equal to unaffected hand: Yes Goal Progress: Progressing Goal:Location Manager/Pinch strength at least 75% of unaffected hand: Yes Goal Progress: Progressing Goal:No pain with affected hand use: Yes Goal Progress: Goal Met Goal:Full use of affected hand in daily activities including work: Yes Goal Progress: Progressing Other Goal: orthosis use: pt will demo understanding of using custom orthosis at all times by end of 1st session. GOAL MET Anticipated Interventions Anticipated Interventions Anticipated Interventions: Early Active Motion, A/AAROM/PROM, Scar Care, Triggerpoint Release, Modalities, Orthoses, Joint Protection/Energy Conservation, Ergonomic Education, Fine Motor Coord/Sam, Education re assistive Equipment, Education re Diagnosis and Home Program Re-Evaluation Ending Re-evaluation ending: Please do not hesitate to contact me at [phone] by phone or if you have questions or concerns regarding this new plan of care! Sincerely, Linn Hernandez
--- NOTE | 2024-08-27 14:43 | HP.OTDCSUM ---
Discharge Summary D/C Summary: It has been my pleasure to treat MARZENA MCMANUS under orders from Dr. Theron Quiroz MD, for the diagnosis of left FDP laceration for a total of 12 visit(s). Please see the following information for a summary of their discharge status. 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 Goals Patient Goals: Use Hand/Wrist/Arm Normally Again Goal:100% adherence to protocol: Yes Goal Progress: Goal Met Goal:Daily scar massage when approriate: Yes Goal Progress: Goal Met Goal:ROM equal to unaffected hand: Yes Goal Progress: Goal Met Goal:Automotive Internet Sales Manager/Pinch strength at least 75% of unaffected hand: Yes Goal Progress: Goal Met Goal:No pain with affected hand use: Yes Goal Progress: Goal Met Goal:Full use of affected hand in daily activities including work: Yes Goal Progress: Goal Met Other Goal: orthosis use: pt will demo understanding of using custom orthosis at all times by end of 1st session. GOAL MET Plan Plan: D/C D/C Information Discharge Comments: pt has made great gains in ROM and strength following flexor tendon repair- pt has returned to his PLOF with all ADLs and ADLS. pt states no concerns and agrees with D/C. d/c sentence: If there are questions or concerns regarding this patient's occupational therapy, please fell free to call me at [phone]. Thank you for the referral of this patient. Sincerely, Kristie Harrison, OTR/L, CHT
== END 2024-08-26 19:00 | disposition home or self-care (01) ==
LOC: OT 08:30
PROVIDERS: Referring Provider Surgery Plastic and Reconstructive Surgery; Visit Provider Surgery Plastic and Reconstructive Surgery
DX: S61.213D Laceration without foreign body of left middle finger without damage to nail, subsequent encounter (principal)
CPT/HCPCS: 97110; 97140; 97166; 97530; 97760